=== PATIENT | female | born 1930 | race Caucasian/White ===

== ENCOUNTER 2021-01-28 09:55 | Inpatient (IN) | payer MEDICARE, MEDICAID ==
[~2021-01-28] VITALS: Ht 157.5 cm; Wt 64.4 kg
--- NOTE | 2021-01-28 10:09 | NUR ---
PROVIDER AT BEDSIDE TO DO EVAL
[2021-01-28] MEDS ORDERED: HYDROcodone/APAP 5/325 TABLET PO ONE (10:30)
[2021-01-28 10:34] LABS: BASOPHILS % (AUTO) 1 % (0-1); EOSINOPHILS % (AUTO) 1 % (1-7); LYMPHOCYTES % (AUTO) 15 % (22-44); MEAN CORPUSCULAR HEMOGLOBIN 26.2 pg (27.0-34.8); MEAN CORPUSCULAR HGB CONC 32.3 g/dL (32.4-35.8); MEAN PLATELET VOLUME 7.8 fL (7.4-10.4); MONOCYTES % (AUTO) 8 % (2-9); NEUTROPHILS % (AUTO) 76 % (42-75); PLATELET COUNT 262 x10^3/uL (130-400); RED BLOOD COUNT 5.42 x10^6/uL (3.82-5.3); RED CELL DISTRIBUTION WIDTH 16.3 % (9.6-15.2)
[2021-01-28 10:40] LABS: ALANINE AMINOTRANSFERASE 19 U/L (12-78); ALBUMIN 3.4 g/dL (3.4-5.0); ANION GAP 7 mmol/L (5-15); CALCIUM 8.9 mg/dL (8.5-10.1); CHLORIDE 111 mmol/L (98-107); CREATININE 1.22 mg/dL (0.55-1.02)
[2021-01-28 10:44] LABS: ALKALINE PHOSPHATASE 65 U/L (45-117); BILIRUBIN,TOTAL 1.1 mg/dL (0.2-1.0); TOTAL PROTEIN 6.8 g/dL (6.4-8.2); TROPONIN I < 0.015 ng/mL (0.000-0.045)
--- NOTE | 2021-01-28 11:25 | NUR ---
PT BACK FROM XRAY WILL MEDICATE
[2021-01-28 12:39] LABS: MICROSCOPIC NOT IND
--- NOTE | 2021-01-28 13:10 | NUR ---
BREAK TRENT AVILES GIVEN REPORT TO ASSUME CARE
--- NOTE | 2021-01-28 14:00 | NUR ---
preceptor RN: ambulation attempt failed. pt is weak and unable to stand without assist. pt back to [facility]. fresh linens applied. pt placed on waffle mattress for comfort. purewick in place for pt comfort. pt daughter at bedside updated on POC pt reports that she has no relief of pain after meds
[2021-01-28] MEDS ORDERED: hydrALAzine 20 MG/ML, 1ML IVPush PRN (15:30)
[2021-01-28] MEDS ORDERED: LORazepam 2 MG/ML, 1ML IVPush PRN (15:30)
[2021-01-28] MEDS ORDERED: BISACODYL 10 MG SUPP PR PRN (15:30)
[2021-01-28] MEDS ORDERED: MORPHINE SULFATE 4 MG/ML, 1ML IVPush PRN (15:30)
[2021-01-28] MEDS ORDERED: ENOXAPARIN 30 MG/0.3 ML SQ SCH (16:00)
[2021-01-28] MEDS ORDERED: PANT20TA4 PO (16:13)
[2021-01-28] MEDS ORDERED: ESCI5TAB7 PO (16:13)
[2021-01-28] MEDS ORDERED: ASPI-963 PO (16:13)
[2021-01-28] MEDS ORDERED: AMLO-211 PO (16:44)
[2021-01-28] MEDS ORDERED: METO25TA91 PO (16:44)
[2021-01-28] MEDS ORDERED: QUET25TA5 PO (16:44)
--- NOTE | 2021-01-28 16:44 | NUR ---
Report given to Shahla mehta to assume care
[2021-01-28 16:45] VITALS: BP 179/67
[2021-01-28 20:00] VITALS: BP 184/92
[2021-01-28] MEDS: FAMOTIDINE 20 MG TABLET PO SCH (20:13)
[2021-01-28] MEDS: QUETIAPINE 25MG TABLET PO SCH (20:14)
[2021-01-28] MEDS ORDERED: TEMAZEPAM 15 MG CAPSULE PO PRN (21:00)
[2021-01-28] MEDS ORDERED: MELATONIN 5 MG TABLET PO PRN (21:00)
[2021-01-29 01:35] VITALS: BP 156/80
[2021-01-29 05:32] LABS: BASOPHILS % (AUTO) 0 % (0-1); EOSINOPHILS % (AUTO) 1 % (1-7); LYMPHOCYTES % (AUTO) 11 % (22-44); MEAN CORPUSCULAR HEMOGLOBIN 26.5 pg (27.0-34.8); MEAN CORPUSCULAR HGB CONC 32.4 g/dL (32.4-35.8); MEAN PLATELET VOLUME 8.1 fL (7.4-10.4); MONOCYTES % (AUTO) 7 % (2-9); NEUTROPHILS % (AUTO) 81 % (42-75); PLATELET COUNT 238 x10^3/uL (130-400); RED BLOOD COUNT 5.67 x10^6/uL (3.82-5.3); RED CELL DISTRIBUTION WIDTH 16.3 % (9.6-15.2)
[2021-01-29 05:42] LABS: ANION GAP 9 mmol/L (5-15); CALCIUM 9.1 mg/dL (8.5-10.1); CHLORIDE 108 mmol/L (98-107); CREATININE 0.96 mg/dL (0.55-1.02)
[2021-01-29 07:56] VITALS: BP 156/78
[2021-01-29] MEDS ORDERED: AMLODIPINE 10 MG TAB PO SCH (09:00)
[2021-01-29] MEDS: ESCITALOPRAM 10MG TABLET PO SCH ×2 (09:00→19:36)
[2021-01-29] MEDS: PANTOPRAZOLE 20MG TABLET PO SCH (09:00)
[2021-01-29] MEDS: AMLODIPINE 5 MG TABLET PO SCH (09:00)
[2021-01-29] MEDS: METOPROLOL SUCCINATE 25 MG TAB.ER.24H PO SCH (09:00)
[2021-01-29] MEDS ORDERED: ASPIRIN 81 MG TABLET EC PO SCH (09:00)
[2021-01-29] MEDS: D5%-0.9% NACL 1,000 ML IV SCH (11:40)
[2021-01-29 15:30] VITALS: BP 148/82
[2021-01-29 19:28] VITALS: BP 150/80
[2021-01-29] MEDS: FAMOTIDINE 20 MG TABLET PO SCH (19:38)
[2021-01-29] MEDS: QUETIAPINE 25MG TABLET PO SCH (19:39)
[2021-01-29] MEDS: ENOXAPARIN 40 MG/0.4 ML SQ SCH (19:41)
[2021-01-30] VITALS (7 sets, daily range): BP systolic 66–178; BP diastolic 42–100
[2021-01-30] MEDS: D5%-0.9% NACL 1,000 ML IV SCH ×2 (06:00→17:56)
[2021-01-30] MEDS: PANTOPRAZOLE 20MG TABLET PO SCH (09:00)
[2021-01-30] MEDS: METOPROLOL SUCCINATE 25 MG TAB.ER.24H PO SCH (09:00)
[2021-01-30] MEDS: ESCITALOPRAM 10MG TABLET PO SCH (09:00)
[2021-01-30] MEDS: AMLODIPINE 5 MG TABLET PO SCH (09:00)
[2021-01-30] MEDS ORDERED: ASPIRIN 81 MG TABLET CHEW ONE (09:14)
[2021-01-30] MEDS: ASPIRIN 81 MG TABLET CHEW PO SCH (09:30)
[2021-01-30] MEDS: ACETAMINOPHEN 325 MG TABLET PO PRN ×2 (09:46→17:55)
[2021-01-30] MEDS ORDERED: hydrALAzine 20 MG/ML, 1ML IV ONE (10:00)
[2021-01-30] MEDS ORDERED: GADOTERATE 7.5 MMOL/15ML SYR ONE (11:47)
[2021-01-30] MEDS: FAMOTIDINE 20 MG TABLET PO SCH (21:30)
[2021-01-30] MEDS: QUETIAPINE 25MG TABLET PO SCH (21:31)
[2021-01-30] MEDS: ENOXAPARIN 40 MG/0.4 ML SQ SCH (21:32)
[2021-01-31 02:02] VITALS: BP 163/73
[2021-01-31] MEDS: ONDANSETRON 2MG/ML, 2ML IVPush PRN ×2 (03:59→11:38)
[2021-01-31] MEDS: D5%-0.9% NACL 1,000 ML IV SCH (05:52)
[2021-01-31 07:46] VITALS: BP 175/83
[2021-01-31] MEDS: PANTOPRAZOLE 20MG TABLET PO SCH (09:00)
[2021-01-31] MEDS: AMLODIPINE 10 MG TAB PO SCH (09:00)
[2021-01-31] MEDS: ASPIRIN 81 MG TABLET CHEW PO SCH (09:00)
[2021-01-31] MEDS: ESCITALOPRAM 10MG TABLET PO SCH (09:00)
[2021-01-31] MEDS: METOPROLOL SUCCINATE 25 MG TAB.ER.24H PO SCH (09:00)
[2021-01-31] MEDS: ACETAMINOPHEN 325 MG TABLET PO PRN ×2 (12:44→20:58)
[2021-01-31 13:38] VITALS: BP 157/93
[2021-01-31 19:14] VITALS: BP 155/93
[2021-01-31] MEDS: FAMOTIDINE 20 MG TABLET PO SCH (20:58)
[2021-01-31] MEDS: QUETIAPINE 25MG TABLET PO SCH (20:58)
[2021-01-31] MEDS: ENOXAPARIN 40 MG/0.4 ML SQ SCH (20:58)
[2021-02-01 01:01] VITALS: BP 150/88
[2021-02-01 07:36] VITALS: BP 171/85
[2021-02-01] MEDS: ACETAMINOPHEN 325 MG TABLET PO PRN (09:17)
[2021-02-01] MEDS: AMLODIPINE 10 MG TAB PO SCH (09:17)
[2021-02-01] MEDS: ASPIRIN 81 MG TABLET CHEW PO SCH (09:17)
[2021-02-01] MEDS: PANTOPRAZOLE 20MG TABLET PO SCH (09:18)
[2021-02-01] MEDS: ESCITALOPRAM 10MG TABLET PO SCH (09:18)
[2021-02-01] MEDS: METOPROLOL SUCCINATE 25 MG TAB.ER.24H PO SCH (09:18)
[2021-02-01 13:41] VITALS: BP 139/88
[2021-02-01] MEDS: POLYETHYLENE GLYCOL 17 GM PACKET PO PRN (17:10)
[2021-02-01 20:14] VITALS: BP 157/97
[2021-02-01] MEDS: ENOXAPARIN 40 MG/0.4 ML SQ SCH (20:49)
[2021-02-01] MEDS: FAMOTIDINE 20 MG TABLET PO SCH (20:49)
[2021-02-01] MEDS: QUETIAPINE 25MG TABLET PO SCH (20:49)
[2021-02-02 01:27] VITALS: BP 155/90
[2021-02-02 05:52] LABS: CREATININE 0.86 mg/dL (0.55-1.02)
[2021-02-02 06:59] LABS: BASOPHILS % (AUTO) 1 % (0-1); EOSINOPHILS % (AUTO) 4 % (1-7); LYMPHOCYTES % (AUTO) 28 % (22-44); MEAN CORPUSCULAR HEMOGLOBIN 26.2 pg (27.0-34.8); MEAN CORPUSCULAR HGB CONC 32.1 g/dL (32.4-35.8); MEAN PLATELET VOLUME 8.1 fL (7.4-10.4); MONOCYTES % (AUTO) 12 % (2-9); NEUTROPHILS % (AUTO) 56 % (42-75); PLATELET COUNT 255 x10^3/uL (130-400); RED BLOOD COUNT 5.23 x10^6/uL (3.82-5.3); RED CELL DISTRIBUTION WIDTH 16.1 % (9.6-15.2)
[2021-02-02 07:03] LABS: ALANINE AMINOTRANSFERASE 22 U/L (12-78); ALBUMIN 2.6 g/dL (3.4-5.0); ANION GAP 3 mmol/L (5-15); CALCIUM 8.8 mg/dL (8.5-10.1); CHLORIDE 112 mmol/L (98-107); CREATININE 0.81 mg/dL (0.55-1.02)
[2021-02-02 07:06] LABS: ALKALINE PHOSPHATASE 69 U/L (45-117); BILIRUBIN,TOTAL 0.6 mg/dL (0.2-1.0); INTERNATIONAL NORMALIZED RATIO 0.99 (0.93-1.1); PROTHROMBIN TIME 10.6 Seconds (9.6-11.5); TOTAL PROTEIN 5.8 g/dL (6.4-8.2)
[2021-02-02 07:43] VITALS: BP 170/81
[2021-02-02] MEDS: AMLODIPINE 10 MG TAB PO SCH (09:55)
[2021-02-02] MEDS: ACETAMINOPHEN 325 MG TABLET PO PRN (09:55)
[2021-02-02] MEDS: DOCUSATE 100 MG CAPSULE PO PRN ×2 (09:55→20:36)
[2021-02-02] MEDS: METOPROLOL SUCCINATE 25 MG TAB.ER.24H PO SCH (09:55)
[2021-02-02] MEDS: ESCITALOPRAM 10MG TABLET PO SCH (09:56)
[2021-02-02] MEDS: ASPIRIN 81 MG TABLET CHEW PO SCH (09:56)
[2021-02-02] MEDS: PANTOPRAZOLE 20MG TABLET PO SCH (10:07)
[2021-02-02 10:38] VITALS: BP 156/74
[2021-02-02 14:00] VITALS: BP 177/69
[2021-02-02] MEDS: POLYETHYLENE GLYCOL 17 GM PACKET PO PRN (18:29)
[2021-02-02 19:19] VITALS: BP 160/70
[2021-02-02] MEDS: QUETIAPINE 25MG TABLET PO SCH (20:28)
[2021-02-02] MEDS: FAMOTIDINE 20 MG TABLET PO SCH (20:28)
[2021-02-02] MEDS: ENOXAPARIN 40 MG/0.4 ML SQ SCH (20:29)
[2021-02-03 01:13] VITALS: BP 150/85
[2021-02-03 07:02] VITALS: BP 170/85
[2021-02-03] MEDS ORDERED: LOSARTAN 25MG TABLET PO SCH (09:30)
[2021-02-03] MEDS: ASPIRIN 81 MG TABLET CHEW PO SCH (09:51)
[2021-02-03] MEDS: ESCITALOPRAM 10MG TABLET PO SCH (09:52)
[2021-02-03] MEDS: ACETAMINOPHEN 325 MG TABLET PO PRN (09:52)
[2021-02-03] MEDS: PANTOPRAZOLE 20MG TABLET PO SCH (09:58)
[2021-02-03 13:41] VITALS: BP 156/69
[2021-02-03] MEDS: DILTIAZEM 60 MG TABLET PO SCH ×3 (16:28→20:44)
[2021-02-03 19:48] VITALS: BP 144/84
[2021-02-03] MEDS: FAMOTIDINE 20 MG TABLET PO SCH (20:44)
[2021-02-03] MEDS: QUETIAPINE 25MG TABLET PO SCH (20:44)
[2021-02-03] MEDS: LOSARTAN 50MG TABLET PO SCH (20:45)
[2021-02-03] MEDS ORDERED: DILTIAZEM 60 MG TABLET PO SCH (21:00)
[2021-02-04 01:28] VITALS: BP 137/74
[2021-02-04 08:45] VITALS: BP 158/95
[2021-02-04] MEDS: PANTOPRAZOLE 20MG TABLET PO SCH (08:56)
[2021-02-04] MEDS: ASPIRIN 81 MG TABLET CHEW PO SCH (08:56)
[2021-02-04] MEDS: LOSARTAN 50MG TABLET PO SCH ×2 (08:56→20:05)
[2021-02-04] MEDS: ESCITALOPRAM 10MG TABLET PO SCH (08:56)
[2021-02-04] MEDS: DILTIAZEM 60 MG TABLET PO SCH ×3 (08:56→20:04)
[2021-02-04 14:42] VITALS: BP 150/83
[2021-02-04 19:26] VITALS: BP 150/90
[2021-02-04] MEDS: FAMOTIDINE 20 MG TABLET PO SCH (20:04)
[2021-02-04] MEDS: QUETIAPINE 25MG TABLET PO SCH (20:06)
[2021-02-05 01:32] VITALS: BP 111/66
[2021-02-05 05:37] LABS: CREATININE 0.89 mg/dL (0.55-1.02)
[2021-02-05] MEDS ORDERED: FENTANYL PF 100 MCG/2ML ONE (06:43)
[2021-02-05 06:44] VITALS: BP 152/105
[2021-02-05] MEDS ORDERED: hydrALAzine 20 MG/ML, 1ML IV PRN (07:00)
[2021-02-05] MEDS ORDERED: ACETAMINOPHEN 325 MG TABLET PO PRN (07:00)
[2021-02-05] MEDS ORDERED: EPHEDRINE 50 MG/ML, 1ML IVPush PRN (07:00)
[2021-02-05] MEDS ORDERED: PROMETHAZINE 25 MG/ML, 1ML IVPush PRN (07:00)
[2021-02-05] MEDS ORDERED: ONDANSETRON 2MG/ML, 2ML IVPush PRN (07:00)
[2021-02-05] MEDS ORDERED: OXYcodone 5 MG/5 ML ORAL.SOL UDC PO PRN (07:00)
[2021-02-05] MEDS ORDERED: LABETALOL 5MG/ML, 20ML IV PRN (07:00)
[2021-02-05] MEDS ORDERED: FENTANYL PF 100 MCG/2ML IV PRN (07:00)
[2021-02-05] MEDS ORDERED: HYDROmorphone 1 MG/ML, 1ML INJ IVPush PRN (07:00)
[2021-02-05] MEDS ORDERED: LIDOCAINE 1%, 20ML ONE (07:02)
[2021-02-05] MEDS ORDERED: DEXAMETHASONE 4 MG/ML, 5ML ONE (07:11)
[2021-02-05] MEDS ORDERED: KETOROLAC 30 MG/1 ML ONE (07:11)
[2021-02-05] MEDS ORDERED: PROPOFOL 10 MG/ML, 20ML ONE (07:12)
[2021-02-05] MEDS ORDERED: LIDOCAINE-MPF 2% ,5ML ONE (07:12)
[2021-02-05] MEDS ORDERED: CEFAZOLIN 1,000 MG ONE (07:12)
[2021-02-05] MEDS ORDERED: ONDANSETRON 2MG/ML, 2ML ONE (07:12)
[2021-02-05] MEDS ORDERED: SUCCINYLCHOLINE 20 MG/ML, 10ML ONE (07:12)
[2021-02-05] MEDS ORDERED: EPHEDRINE 50 MG/ML, 1ML ONE (07:16)
[2021-02-05] MEDS ORDERED: PHENYLEPHRINE 10 MG/ML ONE (07:38)
[2021-02-05] MEDS ORDERED: LOSA50TA2 PO (08:41)
[2021-02-05] MEDS ORDERED: DILT180T7 PO (08:41)
[2021-02-05] MEDS ORDERED: ACET325T26 PO (08:41)
[2021-02-05] MEDS ORDERED: DOCU-131 PO (08:41)
[2021-02-05] MEDS: ESCITALOPRAM 10MG TABLET PO SCH (09:00)
[2021-02-05] MEDS: LOSARTAN 50MG TABLET PO SCH (09:00)
[2021-02-05] MEDS: ASPIRIN 81 MG TABLET CHEW PO SCH (09:00)
[2021-02-05] MEDS: PANTOPRAZOLE 20MG TABLET PO SCH (09:00)
[2021-02-05 09:54] VITALS: BP 143/83
[2021-02-05] MEDS: DILTIAZEM 60 MG TABLET PO SCH (11:06)
[2021-02-05 13:27] VITALS: BP 128/75
== END 2021-02-05 13:30 | disposition home health service (06) | DRG 516 ==
LOC: ED 15:07 → 5SO 15:08 → ED 15:32 → 3N 02-04 14:28
PROVIDERS: ADMIT Internal Medicine; ATTEND Hospitalist
PROC: 0T9B70Z Drainage of Bladder with Drainage Device, Via Natural or Artificial Opening (ICD-10-PCS; 2021-01-28)
PROC: 0QU03JZ Supplement Lumbar Vertebra with Synthetic Substitute, Percutaneous Approach (ICD-10-PCS; 2021-02-05)
PROC: 0QS03ZZ Reposition Lumbar Vertebra, Percutaneous Approach (ICD-10-PCS; principal; 2021-02-05 07:00)
DX: M48.56XA Collapsed vertebra, not elsewhere classified, lumbar region, initial encounter for fracture (principal); D68.69 Other thrombophilia; F02.80 Dementia in other diseases classified elsewhere, unspecified severity, without behavioral disturbance, psychotic disturbance, mood disturbance, and anxiety; G30.1 Alzheimer's disease with late onset; I10 Essential (primary) hypertension; I48.0 Paroxysmal atrial fibrillation; M51.36 Other intervertebral disc degeneration, lumbar region; Z66 Do not resuscitate; M81.0 Age-related osteoporosis without current pathological fracture; R29.6 Repeated falls; Z96.653 Presence of artificial knee joint, bilateral; Z96.641 Presence of right artificial hip joint; W18.39XA Other fall on same level, initial encounter; R00.1 Bradycardia, unspecified; S00.03XA Contusion of scalp, initial encounter; Y92.009 Unspecified place in unspecified non-institutional (private) residence as the place of occurrence of the external cause; Z86.73 Personal history of transient ischemic attack (TIA), and cerebral infarction without residual deficits; Z90.49 Acquired absence of other specified parts of digestive tract; Y99.8 Other external cause status; Y93.89 Activity, other specified; Z88.5 Allergy status to narcotic agent
CPT/HCPCS: 22514; 36415; 70450; 70553; 72072; 72110; 72131; 72146; 72148; 80047; 80048; 80053; 81003; 82565; 82962; 83735; 84100; 84484; 85025; 85610; 85730; 93005; 95819; C8929; G0378; J0690; J1100; J1650; J1885; J2405; J2704; J3010; J7042; Q9957; A9575; C1713; J0330; J0360; J2370